=== PATIENT | female | born 1950 | race Caucasian/White ===

== ENCOUNTER 2020-05-12 18:11 | Observation (INO) | payer MEDICARE, BC ==
[2020-05-12] MEDS ORDERED: DILTIAZEM HCL/D5W 125 MG/125 ML RTUINJ IV ONE (18:22)
[2020-05-12] MEDS ORDERED: DILTIAZEM HCL INJ 25 MG/5 ML VIAL ONE (18:22)
--- NOTE | 2020-05-12 18:24 | ER Document Report ---
ED Medical Screen (RME) - General Chief Complaint: Palpitations Stated Complaint: RAPID HEART RATE Time Seen by Provider: 05/12/20 18:21 Mode of Arrival: Ambulatory Information source: Patient Notes: 70 patient was sent to the ED by the high school science tutor. She was having palpitations with jaw pain. She states that she has not had any chest pains just the palpitations jittery and the jaw pain. She states she was told to come straight to the emergency room. Her heart rate on the EKG was 188. She is trembling. Patient is alert oriented respirations regular unlabored answering questions appropriately at this time. I did show the EKG to Dr. Palacios and the charge nurse. - Related Data Allergies/Adverse Reactions: No Known Allergies Allergy (Verified 06/30/13 23:09) Past Medical History - Past Medical History Cardiac Medical History: Reports: Hx Hypercholesterolemia, Hx Hypertension Endocrine Medical History: Reports: Hx Hypothyroidism GI Medical History: Reports: Hx Hiatal Hernia Psychiatric Medical History: Reports: Hx Anxiety Past Surgical History: Reports: Hx Abdominal Surgery - hiatal hernia, paraesophageal hernia, Mandeep fundoplication - Immunizations Hx Diphtheria, Pertussis, Tetanus Vaccination: No
[2020-05-12] MEDS ORDERED: DILTIAZEM HCL INJ 25 MG/5 ML VIAL IV ONE (18:25)
[2020-05-12] MEDS ORDERED: DILTIAZEM HCL/D5W 125 MG/125 ML RTUINJ IV PRN ×2 (18:32→23:05)
[2020-05-12] MEDS ORDERED: NORMAL SALINE 1000 ML 1,000 ML IV ONE ×2 (18:41→19:15)
--- NOTE | 2020-05-12 18:42 | ER Document Report ---
ED Cardiac - General Chief Complaint: Palpitations Stated Complaint: RAPID HEART RATE Time Seen by Provider: 05/12/20 18:21 Primary Care Provider: LESLY JOSUE MD [Primary Care Provider] - Follow up as needed Mode of Arrival: Ambulatory - [facility] Notes: Patient is a 70-year-old female with a past medical history of AVNRT who presents with rapid heart rate. Patient states symptoms started just before arrival. She states she feels like her heart is beating very fast. She has had this occasionally over the past 2 years. Her electrical system specialist, Dr. Finn, placed her on a Holter monitor but she states that they were unable to see any unusual rhythm. She is on metoprolol daily. Patient states she did not take her metoprolol today. She denies any chest pain or shortness of breath. No recent illnesses. She states that when this happens the rhythm usually resolves on its own. She is not anticoagulated. - Related Data Allergies/Adverse Reactions: No Known Allergies Allergy (Verified 06/30/13 23:09) Past Medical History - General Information source: Patient, Relative - Social History Smoking Status: Never Smoker Frequency of alcohol use: Occasional Family History: CAD - Father had an MT and bypass surgery at age 55, mother had atrial fibrillation. - Past Medical History Cardiac Medical History: Reports: Hx Hypercholesterolemia, Hx Hypertension Endocrine Medical History: Reports: Hx Hypothyroidism GI Medical History: Reports: Hx Hiatal Hernia Psychiatric Medical History: Reports: Hx Anxiety Past Surgical History: Reports: Hx Abdominal Surgery - hiatal hernia, paraesophageal hernia, Mandeep fundoplication - Immunizations Hx Diphtheria, Pertussis, Tetanus Vaccination: No Hx Pneumococcal Vaccination: 07/11/09 Review of Systems - Review of Systems Notes: CONSTITUTIONAL: No fever, fatigue or weight loss. SKIN: No rash. HENT: No congestion, ear pain, or sore throat. EYES: No recent vision problems or eye pain. ENDOCRINE: On synthroid. CARDIOVASCULAR: No chest pain or edema. Positive for palpitations. RESPIRATORY: No cough, shortness of breath, congestion, or wheezing. GASTROINTESTINAL: No abdominal pain, nausea, vomiting, bloody stools or diarrhea. GENITOURINARY: No dysuria. MUSCULOSKELETAL: No joint pain or swelling. LYMPHATIC: No swollen glands. NEUROLOGIC: No seizures. No headache, focal weakness or sensory changes. HEMATOLOGIC: No unusual bruising or bleeding. PSYCHIATRIC: No depression or anxiety. Physical Exam - Vital signs Vitals: Resp BP Pulse Ox 15 211/137 H 98 05/12/20 18:23 05/12/20 18:23 05/12/20 18:23 - Notes Notes: VITAL SIGNS: Tachycardiac. GENERAL: No acute distress, non-toxic appearance. HEAD: Normal with no signs of head trauma. EYES: EOMI, conjunctiva normal, no discharge. EARS: Hearing grossly intact. NOSE: Normal. NECK: Normal range of motion, no tenderness, supple, no lymphadenopathy, No adenopathy, no JVD. CHEST: Clear breath sounds bilaterally. No wheezes, rales, or rhonchi. CARDIAC: Tachycardic VASCULAR: No Edema. Peripheral pulses normal and equal in all extremities. ABDOMEN: Normal and soft with no tenderness, no masses or pulsatile masses. GENITOURINARY: Normal, No tenderness LYMPATHTIC: No lymphadenopathy noted. MUSCULOSKELETAL: Good range of motion of all major joints. Extremities without clubbing, cyanosis or edema. NEUROLOGICAL: Alert and oriented x 3. No focal sensory or strength deficits. Speech normal. Follows commands appropriately. PSYCHIATRIC: Normal Affect, judgement and mood. SKIN: Normal appearance with no rashes or lesions. Course - Re-evaluation Re-evalutation: 05/12/20 20:30 Patient was significantly tachycardic on arrival with rates in the high 100s and low 200s. Patient was started on Cardizem. This seemed to help slow down the rhythm but then it again was very fast. She was ordered fluids and magnesium. Patient was on the Cardizem drip with continually high heart rates in the 170s. She was given a bolus of metoprolol. I did talk with cardiology, Dr. Khan. He reviewed her records and recommended that we give her Lopressor every 6 ho urs 50 mg as that will be longer acting. He also recommended that she be admitted to the hospital so they can evaluate her in the morning. Patient's heart rate did decrease with treatment, it is occasionally in the low 100s but does sometimes increase to the mid 100s. She is in no acute distress. She is in agreement with the plan for admission. Patient's rhythm converted to sinus rhythm. She was slowly weaned off the Cardizem. Patient continues to be in no acute distress. 05/13/20 00:23 - Vital Signs Vital signs: Temp Pulse Resp BP Pulse Ox 97.4 F 65 16 128/75 H 98 05/12/20 23:34 05/12/20 23:34 05/12/20 23:34 05/12/20 23:34 05/12/20 23:34 - Laboratory Result Diagrams: 05/12/20 18:25 05/12/20 18:25 Laboratory results interpreted by me: 05/12/20 18:25 BUN 23 H Est GFR (MDRD) Non-Af 52 L Glucose 126 H - Diagnostic Test Radiology reviewed: Image reviewed, Reports reviewed - EKG Interpretation by Me EKG shows normal: Sinus rhythm Rate: Tachycardia Rhythm: A.Fib When compared to previous EKG there are: Changes noted Additional EKG results interpreted by me: 05/12/20 20:32 Repeat EKG after Cardizem shows atrial fibrillation at a rate of 107. QTc 379. No acute ST changes. Critical Care Note - Critical Care Note Total time excluding time spent on procedures (mins): 45 Comments: Upon my evaluation, this patient had a high probability of imminent or life- threatening deterioration due to A. fib with RVR, which required my direct attention, intervention, and personal management. I have personally provided 45 minutes of critical care time. Time includes review of laboratory data, radiology results, discussion with consultants, and monitoring for potential decompensation. Interventions were performed as documented above. Discharge - Discharge Clinical Impression: Atrial fibrillation with RVR Condition: Stable Disposition: ADMITTED INPATIENT Admitting Provider: Candis (Hospitalist) Unit Admitted: IMCU Referrals: LESLY JOSUE MD [Primary Care Provider] - Follow up as needed
--- NOTE | 2020-05-12 18:51 | RADIOLOGY REPORT (SQ) ---
EXAM DESCRIPTION: CHEST SINGLE VIEW IMAGES COMPLETED DATE/TIME: 05/12/2020 6:42 pm REASON FOR STUDY: palpitation jaw pain COMPARISON: 07/01/2013 EXAM PARAMETERS: NUMBER OF VIEWS: One view. TECHNIQUE: Single frontal radiographic view of the chest acquired. RADIATION DOSE: NA LIMITATIONS: None. FINDINGS: LUNGS AND PLEURA: No opacities, masses or pneumothorax. No pleural effusion. MEDIASTINUM AND HILAR STRUCTURES: No masses. Contour normal. HEART AND VASCULAR STRUCTURES: Heart normal in size. Normal vasculature. BONES: No acute findings. HARDWARE: None in the chest. OTHER: No other significant finding. IMPRESSION: NO ACUTE RADIOGRAPHIC FINDING IN THE CHEST. TECHNICAL DOCUMENTATION: JOB ID: [id number] 2010 [employer]- All Rights Reserved Reading location - IP/workstation name: [email or web address]
[2020-05-12 18:56] LABS: ABSOLUTE BASOPHILS # (AUTO) 0.1 10^3/uL (0.0-0.2); ABSOLUTE EOSINOPHILS # (AUTO) 0.1 10^3/uL (0.0-0.6); ABSOLUTE LYMPHOCYTES (AUTO) 2.9 10^3/uL (0.5-4.7); ABSOLUTE MONOCYTES (AUTO) 0.6 10^3/uL (0.1-1.4); ABSOLUTE NEUT (AUTO) 4.1 10^3/uL (1.7-8.2); BASOPHILS % (AUTO) 0.7 % (0-2); EOSINOPHILS % (AUTO) 1.5 % (0-6); HEMATOCRIT 44.9 % (36.0-47.0); HEMOGLOBIN 15.5 g/dL (12.0-15.5); LYMPHOCYTES % (AUTO) 37.2 % (13-45); MEAN CORPUSCULAR HEMOGLOBIN 30.3 pg (27.0-33.4); MEAN CORPUSCULAR HGB CONC 34.4 g/dL (32.0-36.0); MEAN CORPUSCULAR VOLUME 88 fl (80-97); MONOCYTES % (AUTO) 7.9 % (3-13); PLATELET COUNT 214 10^3/uL (150-450); RED CELL DISTRIBUTION WIDTH 12.9 % (11.5-14.0); SEGMENTED NEUTROPHILS % (AUTO) 52.7 % (42-78); TOTAL CELLS COUNTED % (AUTO) 100 %; WHITE BLOOD COUNT 7.9 10^3/uL (4.0-10.5)
[2020-05-12] MEDS ORDERED: METOPROLOL TARTRATE PF/INJ 5 MG/5 ML SDV IV ONE ×2 (19:00→19:06)
[2020-05-12] MEDS ORDERED: METOCLOPRAMIDE HCL INJ/PF 10 MG/2 ML SDV IV ONE (19:04)
[2020-05-12] MEDS ORDERED: METOPROLOL TARTRATE 50 MG TABLET PO ONE (19:09)
[2020-05-12] MEDS: MAGNESIUM SULFATE/D5W 1 GM/100 ML RTUPB IV SCH ×2 (19:14→20:19)
[2020-05-12 19:16] LABS: ALKALINE PHOSPHATASE 88 U/L (38-126); ANION GAP 14 (5-19); ASPARTATE AMINO TRANSFERASE 27 U/L (14-36); BILIRUBIN,DIRECT 0.3 mg/dL (0.0-0.4); BILIRUBIN,TOTAL 0.6 mg/dL (0.2-1.3); BLOOD UREA NITROGEN 23 mg/dL (7-20); CALCIUM 9.9 mg/dL (8.4-10.2); CARBON DIOXIDE 23 mmol/L (22-30); CHLORIDE 103 mmol/L (98-107); GLUCOSE 126 mg/dL (75-110); POTASSIUM 3.8 mmol/L (3.6-5.0); TOTAL PROTEIN 7.8 g/dL (6.3-8.2)
[2020-05-12 19:18] LABS: ALBUMIN 4.7 g/dL (3.5-5.0)
[2020-05-12 19:32] LABS: FREE T3 3.3 pg/mL (2.77-5.27); FREE T4 (FREE THYROXINE) 1.45 ng/dL (0.78-2.19)
[2020-05-12 19:45] LABS: THYROID STIMULATING HORMONE 2.36 uIU/mL (0.47-4.68)
--- NOTE | 2020-05-12 19:46 | EKG REPORT ---
SEVERITY:- ABNORMAL ECG - ATRIAL FIBRILLATION CONSIDER POSTERIOR INFARCT REPOL ABNRM SUGGESTS ISCHEMIA, ANT-LAT LEADS : Confirmed by: Rg Mccoy MD 12-May-2020 19:46:09
--- NOTE | 2020-05-12 19:46 | EKG REPORT ---
SEVERITY:- ABNORMAL ECG - ATRIAL FIBRILLATION WITH RAPID V-RATE REPOLARIZATION ABNORMALITY, PROB RATE RELATED : Confirmed by: Rg Mccoy MD 12-May-2020 19:46:01
[2020-05-12] MEDS ORDERED: MAGNESIUM HYDROXIDE SUSP 30 ML UDCUP PO PRN (23:00)
[2020-05-12] MEDS ORDERED: MAG HYDROX/AL HYDROX/SIMETH SUSP 30 ML UDCUP PO PRN (23:00)
[2020-05-12] MEDS ORDERED: PROMETHAZINE HCL INJ 25 MG/1 ML VIAL IV PRN (23:00)
[2020-05-12] MEDS ORDERED: MORPHINE SULFATE 10 MG/ML INJ IV PRN ×4 (23:04→23:34)
[2020-05-12] MEDS ORDERED: GUAIFENESIN SYRP 200 MG/10 ML UDC PO PRN (23:04)
[2020-05-12] MEDS ORDERED: MELATONIN 5 MG TABLET PO PRN (23:04)
[2020-05-12] MEDS ORDERED: LORAZEPAM INJ 2 MG/1 ML VIAL IV PRN (23:04)
[2020-05-12] MEDS ORDERED: ACETAMINOPHEN 325 MG TABLET PO PRN (23:04)
[2020-05-12 23:58] LABS: CREATINE KINASE MB 1.04 ng/mL (<4.55); TROPONIN I 0.027 ng/mL
[2020-05-13] MEDS: METOPROLOL TARTRATE 50 MG TABLET PO SCH ×4 (00:52→11:34)
--- NOTE | 2020-05-13 02:16 | PDOC H&P ---
History of Present Illness Admission Date/PCP: 05/12/20 21:14 LESLY JOSUE MD Patient complains of: Palpitations History of Present Illness: SALINA SIM is a 70 year old female who presented the emergency room with acute palpitations. She admits the sudden onset of a rapid heart beat p alpitations with accompanying chest tightness just prior to coming to the emergency room. She denies any other associated or accompanying signs and symptoms. 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 She has not identified any aggravating or ameliorating factors for her palpitations. She admits that she forgot to take her usual dose of metoprolol today. In the emergency room she was found to have atrial fibrillation with a rapid ventricular response which responded well to IV diltiazem and IV metoprolol. She was subsequently admitted to the hospital for further evaluation treatment. Past Medical History Cardiac Medical History: Reports: Hyperlipidema, Hypertension, Other - AV node reentry tachycardia Denies: Atrial Fibrillation, Congestive Heart Failure, Coronary Artery D isease, DVT, Myocardial Infarction, Pulmonary Embolism Pulmonary Medical History: Denies: Asthma, Chronic Obstructive Pulmonary Disease (COPD) EENT Medical History: Denies: Cataracts, Ears - Hearing aids Neurological Medical History: Denies: Hemorrhagic CVA, Ischemic CVA, Seizures Endocrine Medical History: Reports: Hypothyroidism Denies: Diabetes Mellitus Type 1, Diabetes Mellitus Type 2, Hyperthyroidism Renal/ Medical History: Denies: Chronic Kidney Disease, Nephrolithiasis Malignancy Medical History: Reports: None GI Medical History: Reports: Hiatal Hernia Denies: Cirrhosis, Hepatitis Musculoskeltal Medical History: Denies: Arthritis, Fibromyalgia Skin Medical History: Denies: Eczema, Psoriasis Psychiatric Medical History: Denies: Alcohol Dependency, Substance Abuse, Tobacco Dependency Traumatic Medical History: Reports: None Hematology: Denies: Anemia, Bleeding Tendencies Infectious Medical History: Reports: None Past Surgical History Past Surgical History: Reports: Other - John fundoplication Social History Information Source: Patient Lives with: Spouse/Significant other Smoking Status: Never Smoker Electronic Cigarette use?: No Frequency of Alcohol Use: Rare Hx Recreational Drug Use: No Drugs: None Hx Prescription Drug Abuse: No - Advance Directive Resuscitation Status: Full Code Surrogate healthcare decision maker:: Lino Sim Family History Family History: CAD - Father had an SC and bypass surgery at age 55, mother had atrial fibrillation. Parental Family History Reviewed: Yes Children Family History Reviewed: No Sibling(s) Family History Reviewed.: No Medication/Allergy Home Medications: Alprazolam [Xanax 0.5 mg Tablet] 0.5 mg PO PRN PRN 07/01/13 Cholecalciferol (Vitamin D3) [Vitamin D] 2,000 unit PO DAILY 07/01/13 Levothyroxine Sodium [Synthroid] 137 mcg PO DAILY 07/01/13 Metoprolol Tartrate [Lopressor 50 mg Tablet] 25 mg PO Q12 #60 tablet 07/01/13 Pravastatin Sodium [Pravachol] 20 mg PO DAILY 07/01/13 Raloxifene HCl [Evista 60 mg Tablet] 60 mg PO DAILY 07/01/13 Allergies/Adverse Reactions: No Known Allergies Allergy (Verified 06/30/13 23:09) Review of Systems Constitutional: ABSENT: chills, fever(s) Eyes: ABSENT: visual disturbances, other - Eye pain Ears: ABSENT: hearing changes, other - Ear pain Nose, Mouth, and Throat: ABSENT: headache(s), sore throat Cardiovascular: PRESENT: as per HPI, palpitations. ABSENT: chest pain Respiratory: ABSENT: cough, dyspnea Gastrointestinal: ABSENT: abdominal pain, constipation, diarrhea, nausea, vomiting Genitourinary: ABSENT: dysuria, hematuria Musculoskeletal: ABSENT: back pain, joint swelling Integumentary: ABSENT: pruritus, rash Neurological: ABSENT: confusion, convulsions, focal weakness, memory loss, syncope Psychiatric: ABSENT: anxiety, depression Endocrine: ABSENT: cold intolerance, heat intolerance Hematologic/Lymphatic: ABSENT: easy bleeding, easy bruising Allergic/Immunologic: ABSENT: seasonal rhinorrhea Physical Exam Vital Signs: Temp Pulse Resp BP Pulse Ox 188 H 18 135/86 H 98 05/12/20 18:24 05/12/20 21:40 05/12/20 21:40 05/12/20 21:40 Intake & Output 05/11/20 05/11/20 05/12/20 00:59 23:59 23:59 Intake Total 1247 Balance 1247 Weight 88 kg General appearance: PRESENT: no acute distress, cooperative Head exam: PRESENT: atraumatic, normocephalic Eye exam: PRESENT: conjunctiva pink. ABSENT: conjunctival injection, scleral icterus Ear exam: PRESENT: normal external ear exam. ABSENT: bleeding, drainage Mouth exam: PRESENT: dry mucosa, neck supple Neck exam: ABSENT: thyromegaly, tracheal deviation Respiratory exam: PRESENT: clear to auscultation peter, symmetrical, unlabored Cardiovascular exam: PRESENT: RRR. ABSENT: clicks, gallop, rubs Pulses: PRESENT: normal radial pulses, normal dorsalis pedis pul Vascular exam: PRESENT: normal capillary refill. ABSENT: pallor GI/Abdominal exam: PRESENT: normal bowel sounds, soft Rectal exam: PRESENT: deferred Extremities exam: ABSENT: joint swelling, pedal edema Musculoskeletal exam: ABSENT: deformity, dislocation Neurological exam: PRESENT: alert, oriented to person, oriented to place, oriented to time, oriented to situation, CN II-XII grossly intact. ABSENT: motor sensory deficit Psychiatric exam: PRESENT: appropriate affect, normal mood Skin exam: PRESENT: dry, intact, warm. ABSENT: jaundice, rash, urticaria Results Laboratory Results: 05/12/20 18:25 05/12/20 18:25 05/12/20 05/12/20 05/12/20 18:25 18:25 18:25 WBC 7.9 RBC 5.10 Hgb 15.5 Hct 44.9 MCV 88 MCH 30.3 MCHC 34.4 RDW 12.9 Plt Count 214 Seg Neutrophils % 52.7 Sodium 140.4 Potassium 3.8 Chloride 103 Carbon Dioxide 23 Anion Gap 14 BUN 23 H Creatinine 1.05 Est GFR ( Amer) > 60 Glucose 126 H Calcium 9.9 Magnesium 1.9 Total Bilirubin 0.6 AST 27 Alkaline Phosphatase 88 Total Protein 7.8 Albumin 4.7 TSH 2.36 Free T4 1.45 Free T3 pg/mL 3.30 05/12/20 18:39 WBC RBC Hgb Hct MCV MCH MCHC RDW Plt Count Seg Neutrophils % Sodium Potassium Chloride Carbon Dioxide Anion Gap BUN Creatinine Est GFR ( Amer) Glucose Calcium Magnesium Total Bilirubin AST Alkaline Phosphatase Total Protein Albumin TSH Free T4 Cancelled Free T3 pg/mL Cancelled 05/12/20 05/12/20 18:25 21:30 Troponin I < 0.012 0.019 Impressions: Chest X-Ray 05/12/20 18:21 IMPRESSION: NO ACUTE RADIOGRAPHIC FINDING IN THE CHEST. Assessment and Plan - Diagnosis (1) Atrial fibrillation with RVR Is this a current diagnosis for this admission?: Yes (2) Atrioventricular ludwin re-entry tachycardia Is this a current diagnosis for this admission?: Yes (3) Hypothyroidism Qualifiers: Hypothyroidism type: unspecified Qualified Code(s): E03.9 - Hypothyroidism, unspecified Is this a current diagnosis for this admission?: Yes (4) Hypertension Qualifiers: Hypertension type: essential hypertension Qualified Code(s): I10 - Essential (primary) hypertension Is this a current diagnosis for this admission?: Yes (5) Hyperlipidemia Qualifiers: Hyperlipidemia type: unspecified Qualified Code(s): E78.5 - Hyperlipidemia, unspecified Is this a current diagnosis for this admission?: Yes - Plan Summary Summary: Patient is admitted to observation status on [facility] where she will receive routine supportive and symptomatic cares. She will be seen in consultation by Dr. Khan. He will be continued on metoprolol 50 mg p.o. every 6 hours and will also be continued on a Cardizem infusion as required to maintain a heart rate less than 110. She will receive Ativan 1 mg IV every 4 hours as needed for anxiety or restlessness. She will receive morphine sulfate 2 to 4 mg IV every 2 hours as needed for pain. Serial cardiac enzymes will be obtained at Dr. Khan's request. Further laboratory and/or radiographic evaluations will be obtained as needed. Patient will be on a cardiac diet. - Time Time Spent with patient: 15-24 minutes Medications reviewed and adjusted accordingly: Yes Anticipated Discharge Disposition: Home, Self Care Anticipated Discharge Timeframe: within 24 hours - Inpatient Certification Based on my medical assessment, after consideration of the patient's comorbidities, presenting symptoms, or acuity I expect that the services needed warrant INPATIENT care.: No I certify that my determination is in accordance with my understanding of Medicare's requirements for reasonable and necessary INPATIENT services [42 CFR 412.3e].: No
[2020-05-13 05:44] LABS: MEAN CORPUSCULAR HEMOGLOBIN 30.1 pg (27.0-33.4); MEAN CORPUSCULAR HGB CONC 34.1 g/dL (32.0-36.0); MEAN CORPUSCULAR VOLUME 88 fl (80-97); PLATELET COUNT 172 10^3/uL (150-450); RED BLOOD COUNT 4.42 10^6/uL (3.72-5.28); RED CELL DISTRIBUTION WIDTH 12.6 % (11.5-14.0); WHITE BLOOD COUNT 5.9 10^3/uL (4.0-10.5)
[2020-05-13 05:51] LABS: ANION GAP 9 (5-19); BLOOD UREA NITROGEN 18 mg/dL (7-20); CALCIUM 8.6 mg/dL (8.4-10.2); CARBON DIOXIDE 22 mmol/L (22-30); CHLORIDE 110 mmol/L (98-107); CHOLESTEROL 170.42 mg/dL (0-200); CREATINE KINASE 46 U/L (30-135); GLUCOSE 90 mg/dL (75-110); POTASSIUM 4.5 mmol/L (3.6-5.0); TRIGLYCERIDES 131 mg/dL (<150)
[2020-05-13 05:53] LABS: HEMOGLOBIN 13.3 g/dL (12.0-15.5)
[2020-05-13] MEDS ORDERED: PANTOPRAZOLE SODIUM 40 MG TABLET.DR PO SCH (06:00)
[2020-05-13] MEDS ORDERED: HEPARIN SOD (PORCINE) 5,000 UNIT/ML 1 ML VIAL SUBCUT SCH (06:00)
[2020-05-13 06:01] LABS: DIRECT LDL 95 mg/dL (<100)
[2020-05-13 08:29] VITALS: BP 120/78
[2020-05-13 08:49] LABS: CREATINE KINASE MB 1.1 ng/mL (<4.55); TROPONIN I 0.02 ng/mL
--- NOTE | 2020-05-13 09:18 | PDOC CONSULTATION ---
Consultation Consult Date: 05/13/20 Attending physician:: RIVERA WILSON Provider Consulted: TRACI WINTERS History of Present Illness Admission Date/PCP: 05/12/20 21:14 LESLY JOSUE MD History of Present Illness: SALINA UREÑA is a 70 year old female with several years history of palpitation s, HTN, HLD and remote tobacco use who is consulted to our service for evaluation of rapid atrial fibrillation. She was in her usual state of health until the day of admission when she developed palpitations associated with some shortness of breath and reported to the ED for further evaluation. She was found in rapid a-fib with rates close to 200 bpm and was started on cardizem drip, was given a dose of lopressor IV and eventually started on lopressor 50mg PO q6h with improvement in her rates. She was evaluated by Dr. Finn at [facility] in January 2020 with an Ziopatch only demonstrating brief bursts of PAF but no sustained dysrhythmias. She had an uneventful night and converted spontaneously to NSR. She denies cardiac complaints this morning. Her telemetry shows NSR. Physical Exam on 05/13/20: GENERAL: Pleasant and conversational. Oriented x3 with normal mood. Not in acute distress. Well groomed and well developed. HEENT: Normocephalic, atraumatic. Pupils equal. Sclerae anicteric. Oropharynx moist. NECK: No JVD. No carotid bruits. LUNGS: Clear to auscultation bilaterally. Normal respiratory effort without the use of accessory muscles or intercostal retractions. CARDIOVASCULAR: Regular rate and rhythm, normal S1 and S2 without murmurs, rubs, or gallops. PMI not displaced. EXTREMITIES: No pitting edema bilaterally, no cyanosis, no clubbing. +2 pulses femoral and pedal pulses bilaterally. SKIN: No lesions or rashes. MUSCULOSKELETAL: No chest tenderness to palpation. NEUROLOGIC: Nonfocal. No gross sensory or motor deficits bilateral upper or lower extremities. Past Medical History Cardiac Medical History: Reports: Hyperlipidema, Hypertension, Other - AV node reentry tachycardia Denies: Atrial Fibrillation, Congestive Heart Failure, Coronary Artery Disease, DVT, Myocardial Infarction, Pulmonary Embolism Pulmonary Medical History: Denies: Asthma, Chronic Obstructive Pulmonary Disease (COPD) EENT Medical History: Denies: Cataracts, Ears - Hearing aids Neurological Medical History: Denies: Hemorrhagic CVA, Ischemic CVA, Seizures Endocrine Medical History: Reports: Hypothyroidism Denies: Diabetes Mellitus Type 1, Diabetes Mellitus Type 2, Hyperthyroidism Renal/ Medical History: Denies: Chronic Kidney Disease, Nephrolithiasis Malignancy Medical History: Reports: None GI Medical History: Reports: Hiatal Hernia Denies: Cirrhosis, Hepatitis Musculoskeltal Medical History: Denies: Arthritis, Fibromyalgia Skin Medical History: Denies: Eczema, Psoriasis Psychiatric Medical History: Denies: Alcohol Dependency, Depression, Substance Abuse, Tobacco Dependency Traumatic Medical History: Reports: None Hematology: Denies: Anemia, Bleeding Tendencies Infectious Medical History: Reports: None Past Surgical History Past Surgical History: Reports: Other - John fundoplication Social History Lives with: Spouse/Significant other Smoking Status: Never Smoker Electronic Cigarette use?: No Frequency of Alcohol Use: Rare Hx Recreational Drug Use: No Drugs: None Hx Prescription Drug Abuse: No - Advance Directive Resuscitation Status: Full Code Family History Family History: CAD - Father had an IA and bypass surgery at age 55, mother had atrial fibrillation. Parental Family History Reviewed: Yes Children Family History Reviewed: Yes Sibling(s) Family History Reviewed.: Yes Medication/Allergy Home Medications: Alprazolam [Xanax 0.5 mg Tablet] 0.5 mg PO PRN PRN 07/01/13 Cholecalciferol (Vitamin D3) [Vitamin D] 2,000 unit PO DAILY 07/01/13 Levothyroxine Sodium [Synthroid] 137 mcg PO DAILY 07/01/13 Metoprolol Tartrate [Lopressor 50 mg Tablet] 25 mg PO Q12 #60 tablet 07/01/13 Pravastatin Sodium [Pravachol] 20 mg PO DAILY 07/01/13 Raloxifene HCl [Evista 60 mg Tablet] 60 mg PO DAILY 07/01/13 Allergies/Adverse Reactions: No Known Allergies Allergy (Verified 06/30/13 23:09) Physical Exam Vital Signs: Temp Pulse Resp BP Pulse Ox 97.7 F 63 16 131/79 H 100 05/13/20 03:56 05/13/20 03:56 05/13/20 03:56 05/13/20 03:56 05/13/20 03:56 Intake & Output 05/11/20 05/12/20 05/13/20 06:59 06:59 06:59 Intake Total 1509 Balance 1509 Weight 87.8 kg Results Laboratory Results: 05/13/20 04:50 05/13/20 04:50 05/12/20 05/12/20 05/12/20 18:25 18:25 18:25 WBC 7.9 RBC 5.10 Hgb 15.5 Hct 44.9 MCV 88 MCH 30.3 MCHC 34.4 RDW 12.9 Plt Count 214 Seg Neutrophils % 52.7 Sodium 140.4 Potassium 3.8 Chloride 103 Carbon Dioxide 23 Anion Gap 14 BUN 23 H Creatinine 1.05 Est GFR ( Amer) > 60 Glucose 126 H Calcium 9.9 Magnesium 1.9 Total Bilirubin 0.6 AST 27 Alkaline Phosphatase 88 Total Protein 7.8 Albumin 4.7 Triglycerides Cholesterol LDL Cholesterol Direct VLDL Cholesterol HDL Cholesterol TSH 2.36 Free T4 1.45 Free T3 pg/mL 3.30 05/12/20 05/13/20 05/13/20 18:39 04:50 04:50 WBC 5.9 RBC 4.42 Hgb 13.3 D Hct 39.0 MCV 88 MCH 30.1 MCHC 34.1 RDW 12.6 Plt Count 172 Seg Neutrophils % Sodium 140.5 Potassium 4.5 Chloride 110 H Carbon Dioxide 22 Anion Gap 9 BUN 18 Creatinine 0.76 Est GFR ( Amer) > 60 Glucose 90 Calcium 8.6 Magnesium 2.4 H Total Bilirubin AST Alkaline Phosphatase Total Protein Albumin Triglycerides 131 Cholesterol 170.42 LDL Cholesterol Direct 95 VLDL Cholesterol 26.0 HDL Cholesterol 51 TSH Free T4 Cancelled Free T3 pg/mL Cancelled 05/12/20 05/12/20 05/12/20 18:25 21:30 23:19 Creatine Kinase 56 CK-MB (CK-2) Troponin I < 0.012 0.019 05/12/20 05/13/20 23:19 04:50 Creatine Kinase 46 CK-MB (CK-2) 1.04 Troponin I 0.027 Impressions: Chest X-Ray 05/12/20 18:21 IMPRESSION: NO ACUTE RADIOGRAPHIC FINDING IN THE CHEST. 05/13/20 04:50 05/13/20 04:50 MCV 88 fl (80-97) 05/13/20 04:50 MCH 30.1 pg (27.0-33.4) 05/13/20 04:50 MCHC 34.1 g/dL (32.0-36.0) 05/13/20 04:50 RDW 12.6 % (11.5-14.0) 05/13/20 04:50 Seg Neutrophils % 52.7 % (42-78) 05/12/20 18:25 Chloride 110 mmol/L (98-107) H 05/13/20 04:50 Carbon Dioxide 22 mmol/L (22-30) 05/13/20 04:50 Anion Gap 9 (5-19) 05/13/20 04:50 Est GFR ( Amer) > 60 (>60) 05/13/20 04:50 Glucose 90 mg/dL (75-110) 05/13/20 04:50 Calcium 8.6 mg/dL (8.4-10.2) 05/13/20 04:50 Magnesium 2.4 mg/dL (1.6-2.3) H 05/13/20 04:50 Total Bilirubin 0.6 mg/dL (0.2-1.3) 05/12/20 18:25 AST 27 U/L (14-36) 05/12/20 18:25 Alkaline Phosphatase 88 U/L (38-126) 05/12/20 18:25 Total Protein 7.8 g/dL (6.3-8.2) 05/12/20 18:25 Albumin 4.7 g/dL (3.5-5.0) 05/12/20 18:25 Triglycerides 131 mg/dL (<150) 05/13/20 04:50 Cholesterol 170.42 mg/dL (0-200) 05/13/20 04:50 LDL Cholesterol Direct 95 mg/dL (<100) 05/13/20 04:50 VLDL Cholesterol 26.0 mg/dL (10-31) 05/13/20 04:50 HDL Cholesterol 51 mg/dL (>40) 05/13/20 04:50 TSH 2.36 uIU/mL (0.47-4.68) 05/12/20 18:25 Free T4 Cancelled 05/12/20 18:39 Free T3 pg/mL Cancelled 05/12/20 18:39 05/12/20 05/12/20 05/12/20 18:25 21:30 23:19 Creatine Kinase 56 CK-MB (CK-2) Troponin I < 0.012 0.019 05/12/20 05/13/20 23:19 04:50 Creatine Kinase 46 CK-MB (CK-2) 1.04 Troponin I 0.027 Current Medication List Generic Name Dose Route Start Last Admin Trade Name Freq PRN Reason Stop Dose Admin Acetaminophen 650 mg 05/12/20 23:04 Tylenol 325 Mg Tablet PO 06/11/20 23:03 Q4HP PRN For headache, pain or fever Al Hydrox/Mg Hydrox/Simethicone 30 ml 05/12/20 23:00 Maalox Plus Susp 30 Udcup PO 06/11/20 22:59 Q6HP PRN HEARTBURN Guaifenesin 200 mg 05/12/20 23:04 Robitussin Syrup 200 Mg/10 Ml Ud Cup PO 06/11/20 23:03 Q4HP PRN COUGH Heparin Sodium (Porcine) 5,000 unit 05/13/20 06:00 Heparin Inj 5,000 Units/Ml 1 Ml Vial SUBCUT 06/12/20 05:59 Q8 TAHMINA Diltiazem HCl 125 mg in 125 mls @ 0 mls/hr 05/12/20 23:05 Cardizem Rtu Inj 125 Mg-D5w 125 Ml Premix IV 06/11/20 23:04 CONTINUOUS PRN THIS MED IS NOT "PRN" Protocol Titrate Lorazepam 1 mg 05/12/20 23:04 Ativan Inj 2 Mg/1 Ml Vial IV 05/19/20 23:03 Q4HP PRN ANXIETY/AGITATION Magnesium Hydroxide 30 ml 05/12/20 23:00 Milk Of Magnesia 30 Ml Udcup PO 06/11/20 22:59 HSP PRN FOR CONSTIPATION Melatonin 5 mg 05/12/20 23:04 Melatonin 5 Mg Tablet PO 06/11/20 23:03 HSP PRN SLEEP OR INSOMNIA Metoprolol Tartrate 50 mg 05/13/20 00:00 05/13/20 01:44 Lopressor 50 Mg Tablet PO 06/12/20 00:00 50 mg Q6H TAHMINA Administration Morphine Sulfate 2 mg 05/12/20 23:34 Morphine 10 Mg/Ml Inj IV 05/19/20 23:33 Q2HP PRN PAIN SCALE 2/5 Morphine Sulfate 3 mg 05/12/20 23:34 Morphine 10 Mg/Ml Inj IV 05/19/20 23:33 Q2HP PRN PAIN SCALE 3-4/5 Morphine Sulfate 4 mg 11/02/20 23:34 Morphine 10 Mg/Ml Inj IV 05/19/20 23:33 Q2HP PRN PAIN SCALE 5/5 Pantoprazole Sodium 40 mg 05/13/20 06:[address] Tablet PO 06/12/20 05:59 Q6AM TAHMINA Promethazine HCl 12.5 mg 05/12/20 23:00 Phenergan Inj 25 Mg/1 Ml Vial IV 06/11/20 22:59 Q4HP PRN FOR NAUSEA/VOMITING Sodium Chloride 2.5 ml 05/13/20 06:00 Saline Flush 2.5 Ml Monoject Prefil Syrin IV 06/12/20 05:59 Q8 TAHMINA Discontinued Medications Generic Name Dose Route Start Last Admin Trade Name Freq PRN Reason Stop Dose Admin Diltiazem HCl Confirm 05/12/20 18:22 05/12/20 18:46 Cardizem Inj 25 Mg/5 Ml Vial Administered 05/12/20 18:23 Not Given Dose 25 mg .ROUTE .STK-MED ONE Diltiazem HCl 15 mg 05/12/20 18:25 05/12/20 18:27 Cardizem Inj 25 Mg/5 Ml Vial IV 05/12/20 18:26 15 mg NOW ONE Administration Diltiazem HCl Confirm 05/12/20 18:22 05/12/20 18:46 Cardizem Rtu Inj 125 Mg-D5w 125 Ml Premix Administered 05/12/20 18:23 Not Given Dose 125 mg in 125 mls @ ud IV .STK-MED ONE Magnesium Sulfate/Dextrose 1 gm in 100 mls @ 100 mls/hr 05/12/20 18:45 05/12/20 21:20 Magnesium Sulfate Rtu-D5w 1 Gm/100 Ml Premix IV 05/12/20 20:44 Infused Q1H TAHMINA Infusion Sodium Chloride 1,000 mls @ 0 mls/hr 05/12/20 18:41 05/12/20 19:28 Nacl 0.9% 1000 Ml Iv Soln IV 05/12/20 18:42 Infused BOLUS ONE Infusion Wide Open Diltiazem HCl 125 mg in 125 mls @ 0 mls/hr 05/12/20 18:32 05/12/20 22:35 Cardizem Rtu Inj 125 Mg-D5w 125 Ml Premix IV 06/11/20 18:31 0 mg/hr CONTINUOUS PRN 0 mls/hr THIS MED IS NOT "PRN" Titration Protocol Titrate Sodium Chloride 1,000 mls @ 125 mls/hr 05/12/20 19:15 05/12/20 19:32 Nacl 0.9% 1000 Ml Iv Soln IV 05/13/20 03:14 125 mls/hr NOW ONE Administration Metoclopramide HCl 5 mg 05/12/20 19:04 05/12/20 19:06 Reglan Inj/Pf 10 Mg/2 Ml Sdv IV 05/12/20 19:05 Not Given NOW ONE Metoprolol Tartrate Confirm 05/12/20 19:00 05/12/20 19:04 Lopressor Inj/Pf 5 Mg/5 Ml Sdv Administered 05/12/20 19:01 Not Given Dose 5 mg IV .STK-MED ONE Metoprolol Tartrate 5 mg 05/12/20 19:06 05/12/20 19:11 Lopressor Inj/Pf 5 Mg/5 Ml Sdv IV 05/12/20 19:07 5 mg NOW ONE Administration Metoprolol Tartrate 50 mg 05/12/20 19:09 05/12/20 19:13 Lopressor 50 Mg Tablet PO 05/12/20 19:10 50 mg NOW ONE Administration Assessment & Plan - Diagnosis (1) Paroxysmal atrial fibrillation with rapid ventricular response Is this a current diagnosis for this admission?: Yes Plan: The patient converted spontaneously last night and is maintaining sinus rhythm. We had a long discussion about the pathophysiology and further treatment of atrial fibrillation to include but not limjted to a rate control strategy vs rhythm control strategy. Both her 's and her questions were answered. At this point I will defer further treatment to her kitchen bath designer, Dr. Finn at [facility] and will arrange for follow up. Her CHADS 2vasc score is 3 t herefore she will be anticoagulated with Eliquis. Recommendations: -Continue with outpatient dose of metoprolol. -Discontinue baby aspirin to decrease bleeding risk. -Start Eliquis 5mg bid. -Follow up with Dr. Finn, I will arrange. -The patient and her were counseled to call 911 if symptoms recur. -The patient may be discharged from the cardiovascular standpoint.
--- NOTE | 2020-05-13 13:28 | PDOC DISCHARGE SUMMARY ---
Impression - Admit/DC Date/PCP Admission Date/Primary Care Provider: 05/12/20 21:14 LESLY JOSUE MD Discharge Date: 05/13/20 - Discharge Diagnosis (1) Atrial fibrillation with RVR Is this a current diagnosis for this admission?: Yes (2) Atrioventricular ludwin re-entry tachycardia Is this a current diagnosis for this admission?: Yes (3) Hyperlipidemia Is this a current diagnosis for this admission?: Yes (4) Hypertension Is this a current diagnosis for this admission?: Yes (5) Hypothyroidism Is this a current diagnosis for this admission?: Yes (6) Paroxysmal atrial fibrillation with rapid ventricular response Is this a current diagnosis for this admission?: Yes - Assessment Summary: Per admitting physician: "Patient is admitted to observation status on [facility] where she will receive routine supportive and symptomatic cares. She will be seen in consultation by Dr. Khan. He will be continued on metoprolol 50 mg p.o. every 6 hours and will also be continued on a Cardizem infusion as required to maintain a heart rate less than 110. She will receive Ativan 1 mg IV every 4 hours as needed for anxiety or restlessness. She will receive morphine sulfate 2 to 4 mg IV every 2 hours as needed for pain. Serial cardiac enzymes will be obtained at Dr. Khan's request. Further laboratory and/or radiographic evaluations will be obtained as needed. Patient will be on a cardiac diet." Patient admitted to medical floor inpatient converted to normal sinus rhythm after being given rate control medications on admission. Cardiology was consu lted and they recommended patient start on Eliquis twice daily as well as continue her home metoprolol. She will need an outpatient follow-up with cardiology and her PCP. Patient and understand and are in agreement with the plan. Per clay dry press helper: "The patient converted spontaneously last night and is maintaining sinus rhythm. We had a long discussion about the pathophysiology and further treatment of atrial fibrillation to include but not limjted to a rate control strategy vs rhythm control strategy. Both her 's and her questions were answered. At this point I will defer further treatment to her tree topper, Dr. Adams at [facility] and will arrange for follow up. Her CHADS 2vasc score is 3 therefore she will be anticoagulated with Eliquis. Recommendations: -Continue with outpatient dose of metoprolol. -Discontinue baby aspirin to decrease bleeding risk. -Start Eliquis 5mg bid. -Follow up with Dr. Adams, I will arrange. -The patient and her were counseled to call 911 if symptoms recur. -The patient may be discharged from the cardiovascular standpoint." - Additional Information Resuscitation Status: Full Code Discharge Diet: As Tolerated, Cardiac Discharge Activity: Activity As Tolerated, Balance Activity w/Rest Referrals: LESLY JOSUE MD [Primary Care Provider] - 05/22/20 10:00 am SHANEL ADAMS MD [NO LOCAL MD] - 06/16/20 2:30 pm (will call [facility] earlier date when available) Prescriptions: Apixaban [Eliquis 5 mg Tablet] 5 mg PO BID #60 tablet Home Medications: Levothyroxine Sodium [Synthroid] 137 mcg PO Q6AM 07/01/13 Pravastatin Sodium [Pravachol] 10 mg PO QPM 07/01/13 Raloxifene HCl [Evista 60 mg Tablet] 60 mg PO QPM 07/01/13 Apixaban [Eliquis 5 mg Tablet] 5 mg PO BID #60 tablet 05/13/20 Celecoxib [Celebrex 100 mg Capsule] 100 mg PO QPM 05/13/20 Esomeprazole Magnesium [Nexium] 20 mg PO QAM 05/13/20 Metoprolol Succinate [Toprol Xl 50 mg Tab.sr] 50 mg PO QPM 05/13/20 History of Present Illiness History of Present Illness: Per Previous Physician: "SALINA UREÑA is a 70 year old female with several years history of palpitations, HTN, HLD and remote tobacco use who is consulted to our service for evaluation of rapid atrial fibrillation. She was in her usual state of health until the day of admission when she developed palpitations associated with some shortness of breath and reported to the ED for further evaluation. She was found in rapid a-fib with rates close to 200 bpm and was started on cardizem drip, was given a dose of lopressor IV and eventually started on lopressor 50mg PO q6h with improvement in her rates. She was evaluated by Dr. Adams at [facility] in January 2020 with an Ziopatch only demonstrating brief bursts of PAF but no sustained dysrhythmias. She had an uneventful night and converted spontaneously to NSR. She denies cardiac complaints this morning. Her telemetry shows NSR." Physical Exam Vital Signs: Temp Pulse Resp BP Pulse Ox 98.3 F 82 18 120/78 100 05/13/20 08:42 05/13/20 08:25 05/13/20 08:25 05/13/20 08:25 05/13/20 08:25 Intake & Output 05/12/20 05/13/20 05/14/20 06:59 06:59 06:59 Intake Total 1509 Balance 1509 Weight 87.8 kg Exam: General appearance: PRESENT: no acute distress, well-developed, well-nourished, obese Head exam: PRESENT: atraumatic, normocephalic Eye exam: PRESENT: conjunctiva pink. ABSENT: scleral icterus Mouth exam: PRESENT: moist Respiratory exam: PRESENT: clear to auscultation peter. ABSENT: rales, rhonchi, wheezes Cardiovascular exam: PRESENT: RRR. ABSENT: diastolic murmur, rubs, systolic murmur GI/Abdominal exam: PRESENT: normal bowel sounds, soft. ABSENT: distended, guarding, mass, organolmegaly, rebound, tenderness Neurological exam: PRESENT: alert, awake, oriented to person, oriented to place, oriented to time, oriented to situation Psychiatric exam: PRESENT: appropriate affect, normal mood Skin exam: PRESENT: dry, intact, warm Results Laboratory Results: WBC 5.9 10^3/uL (4.0-10.5) 05/13/20 04:50 RBC 4.42 10^6/uL (3.72-5.28) 05/13/20 04:50 Hgb 13.3 g/dL (12.0-15.5) D 05/13/20 04:50 Hct 39.0 % (36.0-47.0) 05/13/20 04:50 MCV 88 fl (80-97) 05/13/20 04:50 MCH 30.1 pg (27.0-33.4) 05/13/20 04:50 MCHC 34.1 g/dL (32.0-36.0) 05/13/20 04:50 RDW 12.6 % (11.5-14.0) 05/13/20 04:50 Plt Count 172 10^3/uL (150-450) 05/13/20 04:50 Lymph % (Auto) 37.2 % (13-45) 05/12/20 18:25 Burnett % (Auto) 7.9 % (3-13) 05/12/20 18:25 Eos % (Auto) 1.5 % (0-6) 05/12/20 18:25 Baso % (Auto) 0.7 % (0-2) 05/12/20 18:25 Absolute Neuts (auto) 4.1 10^3/uL (1.7-8.2) 05/12/20 18:25 Absolute Lymphs (auto) 2.9 10^3/uL (0.5-4.7) 05/12/20 18:25 Absolute Monos (auto) 0.6 10^3/uL (0.1-1.4) 05/12/20 18:25 Absolute Eos (auto) 0.1 10^3/uL (0.0-0.6) 05/12/20 18:25 Absolute Basos (auto) 0.1 10^3/uL (0.0-0.2) 05/12/20 18:25 Seg Neutrophils % 52.7 % (42-78) 05/12/20 18:25 Sodium 140.5 mmol/L (137-145) 05/13/20 04:50 Potassium 4.5 mmol/L (3.6-5.0) 05/13/20 04:50 Chloride 110 mmol/L (98-107) H 05/13/20 04:50 Carbon Dioxide 22 mmol/L (22-30) 05/13/20 04:50 Anion Gap 9 (5-19) 05/13/20 04:50 BUN 18 mg/dL (7-20) 05/13/20 04:50 Creatinine 0.76 mg/dL (0.52-1.25) 05/13/20 04:50 Est GFR ( Amer) > 60 (>60) 05/13/20 04:50 Est GFR (MDRD) Non-Af > 60 (>60) 05/13/20 04:50 Glucose 90 mg/dL (75-110) 05/13/20 04:50 Calcium 8.6 mg/dL (8.4-10.2) 05/13/20 04:50 Magnesium 2.4 mg/dL (1.6-2.3) H 05/13/20 04:50 Total Bilirubin 0.6 mg/dL (0.2-1.3) 05/12/20 18:25 Direct Bilirubin 0.3 mg/dL (0.0-0.4) 05/12/20 18:25 Neonat Total Bilirubin Not Reportable 05/12/20 18:25 Neonat Direct Bilirubin Not Reportable 05/12/20 18:25 Neonat Indirect Bili Not Reportable 05/12/20 18:25 AST 27 U/L (14-36) 05/12/20 18:25 ALT 31 U/L (<35) 05/12/20 18:25 Alkaline Phosphatase 88 U/L (38-126) 05/12/20 18:25 Creatine Kinase 46 U/L (30-135) 05/13/20 04:50 CK-MB (CK-2) 1.10 ng/mL (<4.55) 05/13/20 07:49 Troponin I 0.020 ng/mL 05/13/20 07:49 Total Protein 7.8 g/dL (6.3-8.2) 05/12/20 18:25 Albumin 4.7 g/dL (3.5-5.0) 05/12/20 18:25 Triglycerides 131 mg/dL (<150) 05/13/20 04:50 Cholesterol 170.42 mg/dL (0-200) 05/13/20 04:50 LDL Cholesterol Direct 95 mg/dL (<100) 05/13/20 04:50 VLDL Cholesterol 26.0 mg/dL (10-31) 05/13/20 04:50 HDL Cholesterol 51 mg/dL (>40) 05/13/20 04:50 TSH 2.36 uIU/mL (0.47-4.68) 05/12/20 18:25 Free T4 Cancelled 05/12/20 18:39 Free T3 pg/mL Cancelled 05/12/20 18:39 05/12/20 05/12/20 05/12/20 18:25 21:30 23:19 CK-MB (CK-2) 1.04 Troponin I < 0.012 0.019 0.027 05/13/20 07:49 CK-MB (CK-2) 1.10 Troponin I 0.020 Impressions: Chest X-Ray 05/12/20 18:21 IMPRESSION: NO ACUTE RADIOGRAPHIC FINDING IN THE CHEST. Plan Plan of Treatment: Follow-up with PCP Follow-up with cardiology Time Spent: Greater than 30 Minutes Stroke Is this a Stroke Patient?: No Acute Heart Failure Is this a Heart Failure Patient?: No
== END 2020-05-13 13:45 | disposition home or self-care (01) ==
LOC: ER 18:11 → EH 21:14 → INTOOBSV 21:14 → 3W 23:07
PROVIDERS: ADMIT Emergency Medicine; ATTEND Internal Medicine
DX: I48.0 Paroxysmal atrial fibrillation (principal); I47.1 Supraventricular tachycardia; E78.5 Hyperlipidemia, unspecified; I10 Essential (primary) hypertension; E03.9 Hypothyroidism, unspecified; Z79.899 Other long term (current) drug therapy; Z79.890 Hormone replacement therapy; Z87.891 Personal history of nicotine dependence; Z82.49 Family history of ischemic heart disease and other diseases of the circulatory system
CPT/HCPCS: 93005; 99285; 96375; 96365; 96366; 96368; 36415 ×2; 84439; 82553 ×2; 82550 ×2; 83735 ×2; 84443; 85025; 85027; 80048; 80053; 84484 ×2; 84481; 80061; 71045; 93010; G0378 ×2; J3490 ×3; A9270 ×3; J3475; J7030